=== PATIENT | male | born 1960 | race Caucasian/White ===

== ENCOUNTER 2017-02-03 06:20 | Emergency (ER) | payer OTHER ==
[~2017-02-03] VITALS: Ht 182.9 cm; Wt 104.3 kg
[~2017-02-03 06:20] MED LIST: ACTOS30 MG PO; ASPIRIN EC325 MG PO; FOLIC ACID 1 MG PO; HYDROXYZINE50 MG; KROGER NIC21 MG/24 H TOP; LANTUS SOLOS100 U/ML SC; LIORESAL 10MG T10 MG PO; LOPRESSOR 25MG25 MG PO; METFORMIN HCL500 MG; METFORMIN1000 MG PO; MOTRIN 600 MG600 MG PO; MSIR PO; NOVOLOG100 U/ML SC; TRAMADOL50 MG PO; Theragran Vitamins PO; VENLAFAXINE HYD75 MG PO; VITAMIN B-150 MG PO; XANAX0.5 MG PO; XANAX1 MG PO; ZOFRAN ODT8 MG PO
--- NOTE | 2017-02-03 06:24 | ED GENERAL ADULT ---
History of Present Illness General Chief Complaint: General Adult Stated Complaint: ACCIDENTAL OVERDOSE OF SERAQUEL Source: patient, family, EMS Exam Limitations: no limitations Vital Signs & Intake/Output Vital Signs & Intake/Output Vital Signs Date Time Temp Pulse Resp B/P Pulse O2 O2 Flow FiO2 Ox Delivery Rate 02/03 0921 96.1 88 20 120/76 98 Room Air 02/03 0730 96.0 88 20 119/73 98 Room Air 02/03 0636 96.8 89 18 140/82 97 Room Air 02/03 0634 97 Room Air Allergies Coded Allergies: penicillin V (Intermediate, ITCHY AND PASS OUT 02/16/16) amoxicillin (Severe, SEIZURES 02/16/16) Reconcile Medications Baclofen (Lioresal) 10 MG TAB 1 TAB PO TIDPRN PRN muscle strain Folic Acid 1 MG TAB 1 MG PO DAILY VITAMIN Ibuprofen (Motrin 600 MG Tab) 600 MG TAB 1 TAB PO Q6P PRN PAIN Insulin Aspart, Recombinant (Novolog) 100 U/ML ARTUR 0 UNITS SC AT BEDTIME DIABETES AT BEDTIME Blood Insulin Sugar Units <80 0 81-100 0 101-200 0 UNITS 201-250 0 UNITS 251-300 2 UNITS 301-350 3 UNITS 351-400 4 UNITS Insulin Aspart, Recombinant (Novolog) 100 U/ML ARTUR 0 UNITS SC TIDAC DIABETES BEFORE MEALS Blood Insulin Sugar Units <80 0 81-100 2 < 151 0 UNITS 151-200 2 UNITS 201-250 3 UNITS 251-300 3 UNITS 301-350 4 UNITS 351-400 4 UNITS >400 5 UNITS Insulin Glargine, Recombinan (Lantus Solostar) 100 U/ML ARTUR 64 UNITS SC QPM DIABETES Metoprolol Tartrate (Lopressor) 25 MG TAB 25 MG PO BID BLOOD PRESSURE [MSIR] 15 MG PO Q6P PRN PAIN SCALE 9-10 Nicotine (Nicotine Patch) 21 MG/24 HR TDM 1 PAT TOP DAILY SMOKING CESSATION Pioglitazone Hydrochloride (Actos) 30 MG TAB 1 TAB PO DAILY diabetes [Theragran Vitamins] 1 TAB PO DAILY MULTIVITAMIN Thiamine (Vitamin B-1) 50 MG TAB 50 MG PO DAILY VITAMIN SUPPLEMENTATION Triage Nurses Notes Reviewed? yes Onset: Gradual Duration: hour(s): Timing: recent history Injury Environment: home Severity: mild Modifying Factors: Improves With: rest. Associated Symptoms: "I feel fine." HPI: 56 yo gentleman presents after taking 2 extra doses of seroquel. He notes, "I usually take 300mg at night... but last night I couldn't sleep, so I took 2 extra pills... then I went to my daughter's house because I was locked out of the [employer]... She called because she was afraid that I took too many pills." He denies SI/HI/Hallucinations. "I just needed to sleep." (JOSE L ACOSTA,RENETTA Story) Past History Travel History Traveled to [place] past 21 day No Medical History Any Pertinent Medical History? see below for history Neurological: NONE EENT: NONE Cardiovascular: NONE (rapid heartbeat) Respiratory: NONE Gastrointestinal: NONE Hepatic: NONE Renal: NONE Musculoskeletal: chronic back pain, degen joint disease, falls, rib fxs. 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 MOTHER ( with Breast CA). SISTER (2 sisters have Breast Ca). Hx Contributory? No (JOSE L ACOSTA,RENETTA Story) Review of Systems Review of Systems Constitutional: Reports: no symptoms. EENTM: Reports: no symptoms. Respiratory: Reports: no symptoms. Cardiovascular: Reports: no symptoms. GI: Reports: no symptoms. Genitourinary: Reports: no symptoms. Musculoskeletal: Reports: no symptoms. Skin: Reports: no symptoms. Neurological/Psychological: Reports: no symptoms. Hematologic/Endocrine: Reports: no symptoms. Immunologic/Allergic: Reports: no symptoms. All Other Systems: Reviewed and Negative (JOSE L ACOSTA,RENETTA Story) Physical Exam Physical Exam General Appearance: well developed/nourished, no apparent distress Head: atraumatic, normal appearance Eyes: Bilateral: normal appearance, PERRL, EOMI. Ears, Nose, Throat: normal pharynx, normal ENT inspection, hearing grossly normal Neck: normal inspection, supple, full range of motion Respiratory: normal breath sounds, chest non-tender, no respiratory distress, quiet respiration, lungs clear Cardiovascular: regular rate/rhythm, edema Gastrointestinal: normal bowel sounds, soft, non-tender, no organomegaly Back: normal inspection, normal range of motion Extremities: normal inspection, normal capillary refill, normal range of motion, no edema Neurologic/Psych: no motor/sensory deficits, awake, alert, oriented x 3, slight slurred speech Reflexes: 1+: bicep (R), bicep (L), knee (R), knee (L). Skin: intact, normal color, warm/dry Core Measures ACS in differential dx? No CVA/TIA Diagnosis: No Severe Sepsis Present: No Septic Shock Present: No (JOSE L ACOSTA,RENETTA Story) Progress Differential Diagnoses I considered the following diagnoses in my evaluation of the patient: bipolar, insomnia, unintentional vs intentional overdose. Plan of Care: Orders Procedure Date/time Status URINE DRUG SCREEN FOR ER ONLY 02/03 642 Complete CBC WITHOUT DIFFERENTIAL 02/03 642 Complete EKG 02/03 642 Active COMPREHENSIVE METABOLIC PANEL 02/03 641 Complete ACETOMINOPHEN 02/03 626 Complete SALICYLATE 02/03 626 Complete ETHANOL 02/03 626 Complete Laboratory Tests 02/03/17 0817: Urine Opiates Screen < 100.00, Methadone Screen 71, Barbiturate Screen < 60, Ur Phencyclidine Scrn < 6.00, Amphetamines Screen < 100, U Benzodiazepines Scrn 100 , Urine Cocaine Screen < 50, Urine Cannabis Screen < 5.00 02/03/17 0642: Sodium Cancelled, Potassium Cancelled, Chloride Cancelled, Carbon Dioxide Cancelled, Anion Gap Cancelled, BUN Cancelled, Creatinine Cancelled, BUN/ Creatinine Ratio Cancelled, Glucose Cancelled, Calcium Cancelled, Total Bilirubin Cancelled, AST Cancelled, ALT Cancelled, Alkaline Phosphatase Cancelled, Total Protein Cancelled, Albumin Cancelled, Globulin Cancelled, Albumin/Globulin Ratio Cancelled 02/03/17 0641: Anion Gap 13, Estimated GFR > 60, BUN/Creatinine Ratio 15.8, Glucose 205 H, Calcium 9.3, Total Bilirubin 0.6, AST 35, ALT 66, Alkaline Phosphatase 82, Total Protein 8.1, Albumin 4.7, Globulin 3.4, Albumin/Globulin Ratio 1.4, CBC w Diff NO MAN DIFF REQ, RBC 4.53 L, MCV 89.8, MCH 29.4, RDW 14.6 H, MPV 9.0, Gran % 66.4, Lymphocytes % 24.7, Monocytes % 6.8, Eosinophils % 1.5, Basophils % 0.6, Absolute Granulocytes 3.9, Absolute Lymphocytes 1.5, Absolute Monocytes 0.4, Absolute Eosinophils 0.1, Absolute Basophils 0, PUBS MCHC 32.7 L, Salicylates < 1.0, Acetaminophen < 10.0 L, Serum Alcohol < 10.0 Initial ED EKG: normal intervals, normal p-waves, normal QRS complex, normal sinus rhythm, nonspecific t waves changes. Hand-Off Endorsed To: VAZQUEZ BOYCE MD Endorsed Time: 0700 Pending: labs, other (clinical stability) (RENETTA CARLOS MD) Comments: 07:00 pt signed out to me by dr carlos. 02/03/2017 9:21:54 AM I have updated Steven on his test results. He states other than having a bit of a dry mouth he is having no trouble speaking and has no specific complaint at this time. He has no facial droop, no deviation of tongue and does pronounce "no if's ands or but's" properly. He feels his symptoms are secondary to the Seroquel. (VAZQUEZ BOYCE MD) Departure Departure Condition: Stable Referrals: LOGAN ACOSTA,CLIFFORD Ernandez (PCP/Family) Departure Forms: Customer Survey General Discharge Information (RENETTA CARLOS MD) Departure Disposition: HOME OR SELF CARE Clinical Impression Primary Impression: Medication dosage form inappropriate Secondary Impressions: Dry mouth, Medication side effect Additional Instructions: Follow-up with your doctor for reevaluation and consideration of medication adjustments. Return if any concerns or sudden worsening. (AUSTEN ACOSTA,VAZQUEZ Redmond) Critical Care Note Critical Care Note Critical Care Time: non-applicable (RENETTA CARLOS MD)
[2017-02-03 07:00] LABS: ABSOLUTE BASOPHIL COUNT 0 /CUMM (0.0-0.2); ABSOLUTE EOSINOPHIL COUNT 0.1 /CUMM (0.0-0.7); ABSOLUTE GRANULOCYTE CT 3.9 /CUMM (1.4-6.5); ABSOLUTE LYMPH COUNT 1.5 /CUMM (1.2-3.4); ABSOLUTE MONOCYTE COUNT 0.4 /CUMM (0.10-0.60); BASOPHIL % 0.6 % (0.0-2.0); EOSINOPHIL % 1.5 % (0-5); GRANULOCYTE % 66.4 % (42.2-75.2); HEMATOCRIT 40.7 % (42-52); MEAN CORPUSCULAR HGB 29.4 PG (27.0-31.0); MEAN CORPUSCULAR HGB CONC 32.7 G/DL (33.0-37.0); MEAN CORPUSCULAR VOLUME 89.8 FL (80.0-94.0); PLATELET COUNT 157 /CUMM (130-400); RBC DISTRIBUTION WIDTH 14.6 % (11.5-14.5); RED BLOOD CELL CT 4.53 /CUMM (4.70-6.10); WHITE BLOOD CELL COUNT 5.9 /CUMM (4.8-10.8)
[2017-02-03 09:21] VITALS: BP 120/76
== END 2017-02-03 09:34 ==
LOC: ERH 06:20
PROVIDERS: Pediatrics
DX: T43.595A Adverse effect of other antipsychotics and neuroleptics, initial encounter (principal); R68.2 Dry mouth, unspecified
CPT/HCPCS: 80307; 93005; 93010; G0480